=== PATIENT | female | born 1955 | race Caucasian/White ===

== ENCOUNTER 2016-10-19 11:08 | Emergency (ER) | payer OTHER ==
[~2016-10-19] VITALS: Ht 160 cm; Wt 68.0 kg
[~2016-10-19 11:08] MED LIST: ASPIRIN EC81 MG PO; BLACK COHOSH40 M1 PO; IBUPROFEN400 MG PO; SERTRALINE HCL50 MG PO; SIMVASTATIN20 MG PO
[2016-10-19] MEDS ORDERED: ESTROVEN 155 M155 MG PO (11:23)
[2016-10-19] MEDS ORDERED: GREEN TEA1 EACH PO (11:23)
== END 2016-10-19 11:43 | disposition home or self-care (01) ==
LOC: ED 11:08
DX: Z00.8 Encounter for other general examination (principal)

== ENCOUNTER 2024-02-17 05:53 | Day surgery (SDC) | payer MEDICARE, OTHER ==
[2024-02-13 09:24] VITALS: BP 127/74
[~2024-02-17] VITALS: Ht 160 cm; Wt 79.1 kg
[2024-02-17] VITALS (10 sets, daily range): BP systolic 104–152; BP diastolic 71–91
[~2024-02-17 05:53] MED LIST changes: +AMBIEN10 MG PO; +ESTROVEN 155 M155 MG PO; +FLUOXETINE HCL20 MG PO; +GAS RELIEF125 MG PO; +GREEN TEA1 EACH PO; +HYDROXYZINE HCL25 MG PO; +LACTATED RINGER'S 1,000 ML IV SCH; +LOSARTAN POTASS25 MG PO; +OSTERA TABLET1 EACH PO; +PAIN RELIEVING28 GM TOP; +PEPCID COMPLET1 EACH PO; +ZOLPIDEM TARTRA10 MG PO
[2024-02-17] MEDS ORDERED: CEFAZOLIN SODIUM 2 GM/20 ML SYR IV SCH (07:00)
[2024-02-17] MEDS ORDERED: LIDOCAINE HCL 1% 5 ML SDV INJ ONE (07:00)
[2024-02-17] MEDS ORDERED: IBLOOD GLUCOSE TEST STRIP 1 EA TEST VI PRN ×2 (07:00→10:30)
[2024-02-17] MEDS ORDERED: ROCURONIUM BROMIDE 50 MG/5 ML SYR ONE (07:06)
[2024-02-17] MEDS ORDERED: dexmedeTOMIDine HCl 200 MCG/2 ML VIAL ONE (07:06)
[2024-02-17] MEDS ORDERED: ondansetron HCL 4 MG/2 ML VIAL ONE (07:06)
[2024-02-17] MEDS ORDERED: DEXAMETHASONE SOD PHOS 4 MG/ML VIAL ONE (07:06)
[2024-02-17] MEDS ORDERED: LIDOCAINE HCL 2% 5 ML SDV ONE (07:06)
[2024-02-17] MEDS ORDERED: LIDOCAINE HCL 1% 30 ML SDV ONE (07:06)
[2024-02-17] MEDS ORDERED: propofoL 200 MG/20 ML VIAL ONE (07:06)
[2024-02-17] MEDS ORDERED: MIDAZOLAM HCL 2 MG/2 ML VIAL ONE (07:46)
[2024-02-17] MEDS ORDERED: ACETAMINOPHEN 1,000 MG/100 ML VIAL ONE (07:51)
--- NOTE | 2024-02-17 07:52 | NUR ---
PT NOT AVAIALBLE FOR VISIT. PROVIDED PRAYER.
[2024-02-17] MEDS ORDERED: fentaNYL citrate 100 MCG/2 ML VIAL ONE ×2 (08:06→09:10)
[2024-02-17] MEDS ORDERED: LACTATED RINGER'S 1,000 ML IV ONE ×2 (08:58→09:27)
[2024-02-17] MEDS ORDERED: ePHEDrine sulfate 50 MG/ML AMP ONE (09:26)
[2024-02-17] MEDS ORDERED: SUGAMMADEX SODIUM 200 MG/2 ML ML ONE (09:28)
[2024-02-17] MEDS ORDERED: ondansetron HCL 4 MG/2 ML VIAL IV PRN (10:30)
[2024-02-17] MEDS ORDERED: NALOXONE HCL 0.4 MG SYR IV PRN (10:30)
[2024-02-17] MEDS ORDERED: fentaNYL citrate 50 MCG/ML SDV IV PRN (10:30)
[2024-02-17] MEDS ORDERED: NICOTINE 21 MG/24 HR 1 EA TDSY TD SCH (10:33)
[2024-02-17] MEDS ORDERED: FAMOTIDINE 20 MG/ 2 ML VIAL IV SCH (10:35)
--- NOTE | 2024-02-17 10:36 | NUR ---
02/17/24 1036 Lashawn Melo 1015- PT ARRIVES TO THE PACU WTIH AN ORAL AIRWAY IN PLACE AND ON 6L OF O2 VIA MASK. PT IS NON REACTIVE TO VERBAL AND TACTILE STIMULI. PT ABDOMEN IS SOFT AND NON DISTENDED.
[2024-02-17] MEDS ORDERED: OXYCODONE HCL 5 MG TAB PO PRN (10:45)
[2024-02-17] MEDS ORDERED: LACTATED RINGER'S 1,000 ML IV SCH (10:45)
--- NOTE | 2024-02-17 12:07 | NUR ---
PT REPORT RECIEVED FROM PACU, RN. PT ASSISTED INTO ROOM VIA STRETCHER THEN MOVED TO EDGE OF BED WITH LIMITED ASSISTANCE AND TRANSFERED INDEPENDANTLY TO MED/SURG BED. PT COMPLAINED OF POSTERIOR NECK PAIN THAT HAS BEEN RELIEVED WITH ICE PACK. PT ARRIVED WITH ABD, STERI STRIP, AND [place] DRAIN. INADEQUATE DRAINAGE AMOUNT TO SPECIFY. PT ON CPOX WITH O2 AT 92% AND SCD'S IN PLACE. TRACH KIT IN ROOM WELL. PT CALL LIGHT WITHIN REACH PT HAS NO CONCERNS AT THIS TIME.
[2024-02-17] MEDS ORDERED: ACETAMINOPHEN 500 MG TAB PO SCH (14:00)
[2024-02-17] MEDS ORDERED: SEVOFLURANE 250 ML BTL INH ONE (14:16)
--- NOTE | 2024-02-17 14:19 | NUR ---
UR CLINICAL REVIEW: 2MN MIKAEL, MEETS OBS CRITERIA FOR THYROIDECTOMY MEDICARE OBS 02/17/2024 @ 1035 ORDER MATCHES REG NO AUTH REQUIRED PER MEDICARE RULES PLAN TO DC TO HOME WHEN MEDICALLY STABLE. 02/18/24
--- NOTE | 2024-02-17 14:59 | NUR ---
PT LAYING IN BED WATCHING TV PT IS AWAKE WITH CHEST RISE EQUAL BILAT, PT REQUESTED BROTH AND HAS NO OTHER CONCERNS AT THIS TIME. CALL LIGHT WITHIN REACH.
--- NOTE | 2024-02-17 15:47 | NUR ---
PPT SITTING IN BED PT REQUESTED A NEW ICE PACK FOR THE BACK OF HER NECK WELL JELLO. PT WAS ASKED ABOUT PAIN AND SAID THE TYLONOL DID NOT HELP WITH THE PAIN AND REQUESTED THAT THIS RN ASK IF SHE CAN GET SOMETHING STRONGER TO HELP WITH PAIN SO SHE CAN SLEEP TONIGHT. THIS RN TOLD HER THEY WOULD SPEAK WITH THE DOCTOR ABOUT WHAT CAN BE DONE. PT AGREEABLE. CALL LIGHT WITHIN REACH.
--- NOTE | 2024-02-17 16:11 | NUR ---
ALERT AND ORIENTED IN BED. STATES SHE LIVES WITH SPOUSE IN A HOUSE. HAS STAIRS BUT SHE HAS NO ISSUES USING THEM. SHE HAS NO DME. DRIVES AT BASELINE. DENIES FINANCIAL ISSUES. STATES ABLE TO PAY UTILITES, GET FOOD AND MEDICATIONS WITHOUT ISSUES. DENIES NEEDS FOR CM AT THIS TIME.
--- NOTE | 2024-02-17 16:17 | NUR ---
PT ASSISTED TO RESTROOM BY THIS RN. ON RETURN TO BED FROM RESTROOM BY TRAILER PARK MANAGER PT REPORTED RIGHT SIDED FACIAL PAIN. PT DOES NOT SHOW ANY SIGNS OF FACIAL DROOP. PT MOVED TO BED AND DOES NOT HAVE ANY COMPLAINTS AT THIS TIME CALL LIGHT WITHIN REACH. MD WILL BE NOTIFIED AND MADE AWARE OF SITUATION.
--- NOTE | 2024-02-17 17:31 | NUR ---
PT LAYING IN BED WITH DINNER TRAY BESIDE BED. PT STATES SHE IS NOT HUNGRY BUT DENIES NAUSEA. PT TRAY LEFT INCASE SHE WANTS SOME LATER. PT HAS NO CONCERNS AT THIS TIME CALL LIGHT WITHIN REACH.
--- NOTE | 2024-02-17 18:30 | NUR ---
PT IN BATHROOM WITH FLOR ARCHER. CONCERNS WERE BROUGHT TO THIS RN THAT [place] INSERTION SITE HAD A SUDDEN INCREASE IN BLEEDING DOWN THE NECK. THIS RN IN ROOM TO ASSESS. UNABLE TO ASSESS DUE TO DRESSING, BUT WAS ABLE TO VISUALIZE [place] WAS PROPERLY STITCHED IN PLACED. THIS RN WENT TO MICHELLE TAMAYO RN FOR A SECOND OPINION, DESIREE WAS IN ROOM. STATED THAT THIS WAS NORMAL DUE TO SITE FEELING NORMAL, AND PT WAS NOT COMPLAINING OF SOB. DESIREE STRIPPED [place] TUBE, 25ML SEUROSANG FLUID WAS EMPTIED.
--- NOTE | 2024-02-17 19:05 | NUR ---
SHIFT REPORT RECEIVED FROM MARJORIE RN AND OUSMANE, PT RESTING QUIETLY WITHOUT REQUESTS AT THIS TIME, HOB ELEVATED APPROX 40 DEGREES, SIDE RAILS UP X 2, SPEECH CLEAR, PT ALERT AND ORIENTENED. IVF INFUSING WELL AT 85ML/HR.
--- NOTE | 2024-02-17 19:27 | NUR ---
CORRECTION TO LAST ENTRY AT 190, SHIFT REPORT RECEIVED FROM DAY SHIFT AT 1927.
--- NOTE | 2024-02-17 20:25 | NUR ---
PT AWAKE AND ALERT, VS DONE AND STABLE, CPOX AT 95%, [place] GENTLY STRIPPED AND TO BULB SX, NECK SOFT WITH NO DRAINAGE NOTED AROUND [place] INSERTION SITE, TRACH SET IN ROOM NEAR SINK, HOB ELEVATED APPROX 40 DEGREES, PT ASSISTED UP TO BR, SLIGHT DIZZINESS WHEN INITALLY SITTING BUT TRANSIENT, UP TO BR, GAIT STEADY, VOIDED 100ML LIGHT YELLOW URINE, BACK TO BED, [place] EMPTIED FOR 15ML SERO SANG DRAINAGE, ASSESSMENT COMPLETED. SCDS REPLACED ON LEGS, SIDE RAILS UP X 3, REQUESTING JELLO AND POPSICKLE, GIVEN, FRESH ICE BACK FOR SIDE OF NECK GIVEN PER REQUEST.
--- NOTE | 2024-02-17 20:50 | NUR ---
PT C/O NASAL STUFFINESS AND SINUS HEADACHE IN FRONTAL LOBE, NO FACIAL SWELLING NOTED, HAYDEN MOVED FROM SIDE OF BED TO FAR CORNER OF ROOM. PLAN TO UPDATE MD.
--- NOTE | 2024-02-17 21:53 | NUR ---
TC TO DR RAMÍREZ TO REPORT PT'S FRONTAL HEADACH AND STUFFY NOSE, PT FEELS IT IS POSSIBLE ALLERGIES, ORDER RECEIVED FOR BENADRYL 50MG PO Q6P.
[2024-02-17] MEDS ORDERED: diphenhydrAMINE HCL 50 MG CAP PO PRN (22:00)
--- NOTE | 2024-02-17 22:17 | NUR ---
PT AWAKE AND ALERT, AGREES TO HAVING HAYDEN REMOVED FROM ROOM, DONE, PT MEDICATED WITH TYLENOL FOR PAIN 6/10 AND BENADRYL 50MG PER ORDER. PT ASSISTED UP TO BR TO VOID, GAIT STEADY, VOIDED 200ML LIGHT YELLOW URINE, PT BACK TO BED, SCDS REPLACED, IV PATENT SITE INTACT, [place] GENTLY STRIPPED DRAINING WELL, CONTS WITH SERO SANG FLUID, NO CLOTS NOTED, NECK REMAINS SOFT, NO DRAINAGE AROUND [place] EXIT SITE, ICE TO RIGHT SIDE AND BACK OF NECK PER PT REQUEST, HOB REMAINS ELEVATED AND PT INSTRUCTED ON IMPORTANCE TO KEEP HOB ELEVATED, PT VOICES UNDERSTANDING. PT DENIES OTHER NEEDS RESTING.
--- NOTE | 2024-02-17 22:40 | NUR ---
PT AWAKE, [place] GENTLY STRIPPED, SEROUS FLUID, PT VOIDED 200ML, GAIT STEADY, BACK TO BED, RESTING.
--- NOTE | 2024-02-17 23:00 | NUR ---
PT STATES HEADACHE IS MUCH LESS NOW AND BENADRYL HELPED. PT WITHOUT OTHER REQUESTS.
--- NOTE | 2024-02-18 01:04 | NUR ---
BEDSPREAD CUTTER HAND HELP PT TO THE RESTROOM AND BACK TO BED.
[2024-02-18 01:23] VITALS: BP 136/63
--- NOTE | 2024-02-18 02:09 | NUR ---
PT AWAKE, DROWSY BUT ALERT, [place] GENTLY STRIPPED, SEROUS FLUID DRAINING, NO DRAINAGE AT EXIT SITE NOTED, ICE REMAINS TO RIGHT SIDE OF NECK, PT WITHOUT REQUESTS, HOB REMAINS ELEVATED.
[2024-02-18 03:15] VITALS: BP 136/63
--- NOTE | 2024-02-18 04:07 | NUR ---
PT AWAKE AND ALERT, ASSISTED UP TO BR PER CLEMENT TRIPLETTA, GAIT STEADY, BACK TO BED, REQUESTING ADDITIONAL BENADRYL FOR NASAL STUFFINESS, MEDICATED PER ORDER WITH 50MG PO, PT DENIES NEED FOR PAIN MED AT THIS TIME, FRESH ICE BAG TO NECK PER CLEMENT TRIPLETTA, NEW LITER OF LR HUNG AND CONTS TO INFUSE WELL AT 85ML/HR, SITE INTACT. PT WITHOUT OTHER REQUESTS. NECK SOFT, NO DRAINAGE NOTED AT [place] EXIT SITE, STERI STRIPS INTACT, [place] GENTLY STRIPPED FOR SEROUS FLUID.
[2024-02-18 05:31] VITALS: BP 161/81
[2024-02-18 05:33] VITALS: BP 161/81
--- NOTE | 2024-02-18 05:34 | NUR ---
PT AWAKE, DROWSY, VS STABLE, PT REQUESTING TYLENOL, GIVEN PER ORDER FOR PAIN 07/24, [place] GENTLY SLIPPED FOR SERO SANG FLUID, TOTAL OUTPUT THIS SHIFT 40ML, NO DRAINAGE NOTED FROM [place] EXIT SITE AT THIS TIME, IV PATENT, INFUSING WELL.
--- NOTE | 2024-02-18 07:15 | NUR ---
REPORT RECEIVED FROM ROTOR WINDER RN. PATIENT RESTING IN BED WITH EYES CLOSED. RESPIRATIONS EVEN AND UNLABORED. DRESSING TO ANTERIOR NECK REMAINS IN PLACE. NO NOTED BLEEDING AT THIS TIME. CALL LIGHT WITHIN REACH.
--- NOTE | 2024-02-18 08:15 | NUR ---
ROUNDING ON PATIENT. RESTING IN BED WITH EYES CLOSED. RESPIRATIONS EVEN AND UNLABORED. CALL LIGHT WITHIN REACH.
--- NOTE | 2024-02-18 09:42 | NUR ---
PATIENT RESTING IN BED WITH FAMILY AT BEDSIDE. IV SITE WNL. IVF INFUSING WITH NO ISSUES OR CONCERNS. LUNGS CTA, BOWEL TONES ACTIVE X 4. PATIENT REPORTS PAIN LEVEL IS 4/10. SRTERI STRIPS TO ANTERIOR NECK CDI. [place] DRAIN FUNCTIONING WNL, SEROSANG DRAINAGE NOTED 10CC. DRAIN TUBBING WAS STRIPPED. NEW ICE PACK GIVEN. PATIENT WITH NO FURTHER NEEDS AT THIS TIME. CALL LIGHT WITHIN REACH.
--- NOTE | 2024-02-18 10:23 | NUR ---
CALL LIGHT ANSWERED. PATIENT VOID IN TOILET. AMBULATING WELL. DENIES ANY DIZZINESS AT THIS TIME. GAMING ASSOCIATE STAFF IN ROOM WITH PATIENT AT THIS TIME.
[2024-02-18 10:25] VITALS: BP 135/65
[2024-02-18] MEDS ORDERED: NICOTINE1 EAC2 TD (11:33)
[2024-02-18] MEDS ORDERED: ACETAMINOPHEN500 MG PO (11:34)
--- NOTE | 2024-02-18 12:23 | NUR ---
PATIENT DISCHARGED WITH ALL PERSONAL BELONGINGS. PATIENT ESCORTED BY THIS RN TO [facility] WHERE DAUGHTER AND WERE WAITING FOR PATIENT.
--- NOTE | 2024-02-19 15:20 | OR ---
[facility] [address], [place] [address] Signed DATE OF OPERATION: 02/17/2024 SURGEON: Temitope Ramírez MD PREOPERATIVE DIAGNOSES: 1. Symptomatic right lower pole 5 cm thyroid nodule. [place] category 2 on FNA biopsy. 2. Symptoms of hoarseness and mild dysphagia. POSTOPERATIVE DIAGNOSES: 1. Symptomatic right lower pole 5 cm thyroid nodule. [place] category 2 on FNA biopsy. 2. Symptoms of hoarseness and mild dysphagia. PROCEDURE: Right thyroid lobectomy with isthmusectomy, prolonged complicated difficult. ANESTHESIA: General endotracheal; Yasmeen Medina CRNA. INDICATION: This 68-year-old white woman is a patient of Dr. Yudy Gallo. She was noted to have a 5 cm nodule in the right lower pole of the thyroid and underwent ultrasound-guided fine-needle aspiration biopsy by ak showing a [place] category 2 lesion. She was asymptomatic with initial presentation. She underwent fine-needle aspiration biopsy in December 2023. Given the large size of the thyroid it was surprise, she did not have symptoms. She was offered resection despite its probable benign findings and only recently decided she would proceed with a day. She was having some issues with swallowing and a mild amount of hoarseness she thought. She understands the risk of bleeding, infection, recurrent laryngeal nerve injury, external laryngeal nerve injury, cosmetic deformity, need for additional treatment should malignancy be discovered after all. She understands all of this and wished to proceed. FINDINGS: The [place] thyroid particular right upper lobe was quite small. Quite bulky, however, was the right lower lobe nodule which was smooth and certainly 5 cm in size. It was relatively soft. She did not have extension to suggest malignancy. Some phimosis in the inferior aspect was covered in the lower pole. A small lobule of thymus versus lymph node was excised in continuity also. There appeared to be residual right upper pole parathyroid gland tissue of the left was of uncertain preservation. The recurrent laryngeal nerve was clearly identified and was not harmed directly (ligation, etc.) and emanated in the natural position in the tracheoesophageal groove. Photographs were Electronically Signed By: TEMITOPE RAMÍREZ MD 02/19/24 1520 PATIENT NAME: MARYBETH WILLIAM OPERATIVE REPORT DATE OF : 57 REPORT #: [id number] PHYSICIAN: TEMITOPE RAMÍREZ MD PCP: YUDY GALLO MD REPORT IS CONFIDENTIAL AND NOT TO BE RELEASED WITHOUT AUTHORIZATION [facility] [address], [place] [address] Signed taken. The operation was somewhat challenging given the high vascularity of the gland and the posterior attachments that required meticulous suture ligation rather than cautery due to the proximity to the recurrent nerve. Operation was prolonged on that basis. A drain was placed on this occasion. Zafar hemostatic agent used as well. Blood loss was less than 50 mL. DESCRIPTION OF PROCEDURE: The patient was brought to the operating room, given a general endotracheal anesthetic. The arms were placed at the side and a shoulder roll was placed and mild neck extension undertaken. The neck was prepared with a chlorhexidine solution and draped sterilely. A natural skin crease was transversely oriented were identified and the appropriate one used for incision. An incision was carried between the medial heads of the sternocleidomastoid muscle. Dissection was carried through the skin with sharp dissection. Electrocautery was used for hemostasis. The platysmal layer, which was minimal, was divided with electrocautery. Superior and inferior flaps were developed with blunt electrocautery dissection. Gelpi retractors were placed in the midline fascia identified and incised vertically in avascular plane. The sternohyoid and subsequently sternothyroid muscles were freed with sharp dissection. The underlying thyroid appeared impressively small far less than anticipated. On that basis, the ultrasound was reviewed confirming that the lesion was in the right lobe. Indeed it was. Further dissection revealed that the thyroid mass, which was 5 cm in size, extended inferiorly and posteriorly beneath the normal-appearing thyroid. The right middle thyroidal vein was independently ligated with 4-0 silk ties. Superior and inferior polar vessels were similarly dissected free with meticulous care and secured with 4-0 silk ties and on occasion and additional clip for safety. The right upper lobe was mobilized quite well. The lower lobe extended deep and though not retrosternal, soon would be if allowed to . Using various manipulations, it was able to be manipulated to the midline and out of the wound. The posterior elements were packed off with plain gauze. Additional dissection posteriorly allowed for transection of the ligament of Louis with sharp dissection and hemostasis assured with minimal cautery and 3-0 silk suture as necessary. Ultimately, the right lobe in continuity with a large mass was rotated in the midline. Hemostats were applied to the isthmus. The parenchyma of the isthmus divided with electrocautery. Parenchymal remnants were secured with 3-0 silk suture. Irrigation was undertaken. Examination of the posterior elements undertaken identifying well the right recurrent laryngeal nerve which was completely unharmed and extending in its normal anatomic position in the tracheoesophageal groove and into the larynx itself. The remaining parenchyma of the ligament of Louis had oozing which was secured with meticulous application of 3-0 silk sutures and once hemostasis assured and irrigation undertaken application of Zafar. On this occasion, a drain was deemed advisable. It was a 7 mm flat Joshua, was placed in the right peritracheal space. The midline strap muscles were reapproximated with Electronically Signed By: TEMITOPE RAMÍREZ MD 02/19/24 1520 PATIENT NAME: MARYBETH WILLIAM OPERATIVE REPORT DATE OF : 57 REPORT #: [id number] PHYSICIAN: TEMITOPE RAMÍREZ MD PCP: YUDY GALLO MD REPORT IS CONFIDENTIAL AND NOT TO BE RELEASED WITHOUT AUTHORIZATION [facility] [address], [place] [address] Signed interrupted 2-0 Vicryl as were the platysmal fibers. The skin was closed with interrupted 4-0 Vicryl. Steri-Strips were applied as was an Acticoat dressing. The drain was secured to the skin with nylon suture and attached to bulb suction. She was taken out of any extension showing no sign of bleeding or other problem. She was ultimately extubated and transferred to the recovery room in good condition having suffered no known complications. Sponge, needle, and instrument counts reported as correct x3' MD ARSLAN Guzman/NASRAL /[id number] cc: Yudy Gallo MD Copies: YUDY GALLO MD ~ Electronically Signed By: TEMITOPE RAMÍREZ MD 02/19/24 1520 PATIENT NAME: MARYBETH WILLIAM OPERATIVE REPORT DATE OF : 57 REPORT #: [id number] PHYSICIAN: TEMITOPE RAMÍREZ MD PCP: YUDY GALLO MD REPORT IS CONFIDENTIAL AND NOT TO BE RELEASED WITHOUT AUTHORIZATION
--- NOTE | 2024-02-21 17:23 | PATH ---
[facility] [address], [place] [address] Signed SPECIMEN(S): A RIGHT THYROID LOBE, PORTION OF ISTHMUS SPECIMEN(S): B THYMIC REMNANT SPECIMEN SOURCE: A. RIGHT THYROID LOBE, PORTION OF ISTHMUS B. THYMIC REMNANT CLINICAL HISTORY: Right thyroid nodule FINAL PATHOLOGIC DIAGNOSIS: A. Right thyroid lobe, portion of isthmus: - Benign nodular thyroid. - Negative for evidence of malignancy. B. Thymic remnant: - Benign soft tissue and parathyroid. - Negative for evidence of thymus on these sections. COMMENT: As part of [facility]' Quality Improvement Program, this case was reviewed by another member of our pathology staff. JVR:CURTIS:mau MICROSCOPIC EXAMINATION: Histologic sections of all submitted blocks are examined by light microscopy. These findings, together with the gross examination, support the pathologic diagnosis. GROSS DESCRIPTION: A. The specimen, labeled and designated "Farias, P., right thyroid lobe with 5 cm nodule and portion of isthmus," is received in formalin and consists of a 32 g partial thyroidectomy with a 6.5 x 3.2 x 3.1 cm right lobe and a 2.7 x 1.2 x 0.5 cm portion of isthmus. The capsule appears intact and is subsequently inked as follows: Anteriorblue, posteriorblack, isthmusyellow. The specimen is serially sectioned revealing a 4.2 x 3.1 x 3 cm trevino mass with scant amount of hemorrhage. The nodule appears confined to the capsule. The background parenchyma is beefy red and homogenous. There are no additional masses or lesions. Bead Supervisor sections are submitted as follows. Cassette Summary: PATIENT NAME: MARYBETH FARIAS PATHOLOGY DATE OF : 57 REPORT #: [id number] PHYSICIAN: [facility] PCP: YUDY CASTRO MD REPORT IS CONFIDENTIAL AND NOT TO BE RELEASED WITHOUT AUTHORIZATION [facility] [address], [place] [address] Signed (A1) isthmus margin (A2-A3) fullface of mass (A4-A15) capsule, entirely submitted (A16) uninvolved parenchyma AA (under the direct supervision of a pathologist) B. The specimen, labeled and designated "Jarrett, P., possible thymic remnant," is received in formalin and consists of a 2 x 1.1 x 0.7 cm portion of trevino-yellow lobulated tissue. The outer surface is inked blue and the specimen is serially sectioned revealing a yellow lobulated cut surface. There are no areas of hemorrhage necrosis. There are no discrete masses. The specimen is entirely submitted in cassette B1. AA (under the direct supervision of a pathologist) The Gross Description was prepared using a voice recognition system. The report was reviewed for accuracy; however, sound-alike word errors, addition and/or deletions may occur. If there is any question about this report, please contact Client Services. PERFORMING LABORATORY: Technical component was performed by [facility], [address] [place] [id number] (CLIA# [id number]). Professional interpretation was performed by [facility], [address] [place] [id number] (CLIA#: [id number]). Diagnostician: Jerrod Hdez MD Pathologist Electronically Signed 02/21/2024 Copies: ~ PATIENT NAME: MARYBETH FARIAS PATHOLOGY DATE OF : 57 REPORT #: [id number] PHYSICIAN: [facility] PCP: YUDY CASTRO MD REPORT IS CONFIDENTIAL AND NOT TO BE RELEASED WITHOUT AUTHORIZATION
== END 2024-02-18 12:15 | disposition home or self-care (01) ==
LOC: DS 05:53 → MS 11:00 → DS 02-18 12:15
PROVIDERS: ATTEND Surgery
PROC: 0GTH0ZZ Resection of Right Thyroid Gland Lobe, Open Approach (ICD-10-PCS; principal; 2024-02-17 07:30)
DX: E04.1 Nontoxic single thyroid nodule (principal); R49.0 Dysphonia; I10 Essential (primary) hypertension; Z85.41 Personal history of malignant neoplasm of cervix uteri; Z90.711 Acquired absence of uterus with remaining cervical stump; Z88.8 Allergy status to other drugs, medicaments and biological substances
CPT/HCPCS: 00320; 88305; 88307; A9270; J0131; J0690; J1100; J2003; J2250; J2405; J2704; J3010; J3490; J7121; Q0163